=== PATIENT | female | born 1980 | race Two or more races ===

== ENCOUNTER 2022-02-21 12:49 | Inpatient (IN) | payer OTHER ==
[~2022-02-21] VITALS: Ht 154.9 cm; Wt 124.7 kg
[2022-02-21] MEDS ORDERED: PROBIOTIC1 EAC4 PO (13:13)
[2022-02-21] MEDS ORDERED: PEPCID AC20 MG PO (13:13)
--- NOTE | 2022-02-21 13:15 | NUR ---
SE RECIBE PTE ALERTA Y ORIENTADA X3,REFIERE TENER DIARREAS LE RECOMENDARON UN GASTRO TENIA KASSIE HOY FUE Y LE RECOMENDARON VENIR A LA MARINO DE ER,.LA PTE REFIERE SENTIRSE DEBIL ,LE HICIERON CT ABDOMINAL.
--- NOTE | 2022-02-21 14:40 | NUR ---
SE RECIBE PTE EVALUADA POR DR. LOCKHART, QUIEN HACE ORDEN MEDICA. SE ADMINISTRAN MEDICAMENTOS Y SE MARIE MUESTRAS DE LABORATORIO SIMEON ORDEN MEDICA Y BAJO MEDIDAS ASEPTICAS. PTE ESPERA EN AREA DE OBSERVACION POR RESULTADOS DE LABORATORIO PARA REEVALUACION MEDICA.
--- NOTE | 2022-02-21 15:42 | NUR ---
SE RECIBE PTE ALERTA Y ORIENTADA X3 EN TI CON BARANDAS ELEVADAS. PTE CANALIZADA AREA CLARE DE EDEMA Y DE ENROJECIMIENTO.PTE EN ESPERA DE RESULTADOS DE LAB. PARA RE EVALUCION MEDICA.
== END 2022-02-24 23:01 | disposition home or self-care (01) | DRG 392 ==
LOC: ER 12:49 → MEDI 21:17 → SURH 02-24 13:56
PROVIDERS: ADMIT Internal Medicine; ATTEND Internal Medicine
DX: K52.89 Other specified noninfective gastroenteritis and colitis (principal); E86.0 Dehydration; R63.0 Anorexia; R53.1 Weakness; Z68.23 Body mass index [BMI] 23.0-23.9, adult

== ENCOUNTER 2022-02-28 21:03 | Emergency (ER) | payer OTHER ==
[~2022-02-28] VITALS: Ht 154.9 cm; Wt 58.1 kg
[~2022-02-28 21:03] MED LIST: PEPCID AC20 MG PO; PROBIOTIC1 EAC4 PO
== END 2022-03-01 01:43 | disposition home or self-care (01) ==
LOC: ER 21:03
DX: K29.70 Gastritis, unspecified, without bleeding (principal); R10.84 Generalized abdominal pain; Z88.8 Allergy status to other drugs, medicaments and biological substances; Z91.013 Allergy to seafood

== ENCOUNTER 2022-03-01 03:38 | Emergency (ER) | payer OTHER ==
[~2022-03-01] VITALS: Ht 154.9 cm; Wt 58.1 kg
== END 2022-03-01 21:00 | disposition home or self-care (01) ==
LOC: ER 03:38
DX: K29.70 Gastritis, unspecified, without bleeding (principal); R10.9 Unspecified abdominal pain; Z91.041 Radiographic dye allergy status; Z91.013 Allergy to seafood

== ENCOUNTER 2022-03-03 08:59 | Inpatient (IN) | payer OTHER ==
[~2022-03-03] VITALS: Ht 154.9 cm; Wt 57.6 kg
[2022-03-03] MEDS ORDERED: PANTOPRAZOLE SO20 MG PO (09:09)
--- NOTE | 2022-03-03 09:12 | NUR ---
SE RECIBE PACIENTE ALERTA Y ORIENTADA X3. REFIERE DOLOR ABDOMINAL MITZY QUE EMPEZO EN EL AMANDA DE HOY Y ESCALOFRIOS. SE COLOCA EN TI CON BARANDAS ELEVADAS.
--- NOTE | 2022-03-03 10:04 | NUR ---
PACIENTE EVALUADA POR EL QUIEN ORDENA TRATAMIENTO MEDICO.SE ORIENTA PACIENTE SOBRE EL MISMO ESTA REFIERE ENTENDER. SE REALIZAN MUESTRAS BAJO MEDIDAS ASEPTICAS Y SE ADMINISTRAN MEDICAMENTOS SIMEON ORDEN. SE ORIENTA PACIENTE SOBRE CT PO.
--- NOTE | 2022-03-03 14:13 | NUR ---
SE ATIENDE PTE. EN SILLON EN EMERGENCIA EN ESPERA DE ESTUDIO CT CON MEDIO DE CONTRASTE. PTE. REFIERE TENER DIARREA EN 6 OCASIONES. SE LLEVA AL JULIANA Y AL SALIR AL PASILLO AMBULANDO ACOMPANADA DE HIJA Y RN. SHE. PIERDE FUERZA Y SE PONE EN TI SE MIDEN SIGNOS VITALES LOS CUALES ESTAN DENTRO DE LOS PARAMETROS NORMALES, SE LE HACE DEXTRO LA CUAL ARROJA UN RESULTADO DE 99. PTE. ESTA ALERTA, SE MANTUVO ACOM[place] EN TODO MOMENTO. PTE REFIERE SENTIRSE MEJOR. SE LE NIKO RONDAS CONSTANTES, CON BARANDAS ELEVADAS Y SE TAMIKO ACOMPANADA DE SAINI HIJA.
--- NOTE | 2022-03-03 21:55 | NUR ---
PACIENTE CONSULTADA CON MEDICINA INTERNA.
[2022-03-05] MEDS ORDERED: ESCITALOPRAM OXA5 MG (09:38)
[2022-03-05] MEDS ORDERED: SUCRALFATE1 GM (09:38)
[2022-03-05] MEDS ORDERED: LORAZEPAM0.5 MG (09:38)
== END 2022-03-10 23:00 | disposition home or self-care (01) | DRG 419 ==
LOC: ER 08:59 → MEDI 03-04 04:04 → SURG 03-07 15:52
PROVIDERS: ADMIT Internal Medicine; ATTEND Internal Medicine
PROC: 0FT44ZZ Resection of Gallbladder, Percutaneous Endoscopic Approach (ICD-10-PCS; principal; 2022-03-04)
PROC: CF141ZZ Planar Nuclear Medicine Imaging of Gallbladder using Technetium 99m (Tc-99m) (ICD-10-PCS; 2022-03-04)
DX: K81.1 Chronic cholecystitis (principal); E86.0 Dehydration; R10.13 Epigastric pain; Z20.822 Contact with and (suspected) exposure to COVID-19

== ENCOUNTER 2022-04-14 11:05 | Emergency (ER) | payer OTHER ==
[~2022-04-14] VITALS: Ht 154.9 cm; Wt 53.5 kg
[~2022-04-14 11:05] MED LIST changes: +ESCITALOPRAM OXA5 MG; +LORAZEPAM0.5 MG; +PANTOPRAZOLE SO20 MG PO; +SUCRALFATE1 GM
== END 2022-04-14 16:16 | disposition home or self-care (01) ==
LOC: ER 11:05
DX: K52.9 Noninfective gastroenteritis and colitis, unspecified (principal); E86.0 Dehydration; Z88.8 Allergy status to other drugs, medicaments and biological substances; Z91.013 Allergy to seafood

== ENCOUNTER 2022-07-22 11:04 | Emergency (ER) | payer OTHER ==
[~2022-07-22] VITALS: Ht 154.9 cm; Wt 55.8 kg
== END 2022-07-22 15:15 | disposition home or self-care (01) ==
LOC: ER 11:04
DX: U07.1 COVID-19 (principal)

== ENCOUNTER 2023-08-24 09:35 | Emergency (ER) | payer OTHER ==
[~2023-08-24] VITALS: Ht 154.9 cm; Wt 59.0 kg
[2023-08-24 12:51] LABS: PH,URINE 6.5 (5.0-8.0); URINE APPEARANCE Clear; URINE BILIRRUBIN Negative (NEGATIVE); URINE BLOOD Negative; URINE COLOR Yellow; URINE GLUCOSE Negative (NEGATIVE); URINE LEUKOCYTE Negative; URINE NITRATE Negative; URINE PROTEIN Negative (NEGATIVE); URINE UROBILINOGEN 0.2 E.U./dl
[2023-08-24 12:54] LABS: HEMATOCRIT 38.6 % (36.0-45.00); HEMOGLOBIN 13.5 g/dL (12.0-15.00); MEAN CELL VOLUME 90.5 fL (80.00-100.00); MEAN CORPUSCULAR HEMOGLOBIN 31.7 pg (27.00-32.0); MEAN CORPUSCULAR HGB CONC 35.1 g/dl (32.0-36.0); PLATELET COUNT 195 K/uL (150-450); RED BLOOD COUNT 4.27 M/uL (4.00-6.00); RED CELL DISTRIBUTION WIDTH 12.3 % (11.5-14.5)
[2023-08-24 12:55] LABS: URINE BACTERIA 214.1 uL (0.0-1933); URINE EPITHELIAL CELLS 28.4 uL (0.0-38.8); URINE RBC 8.6 uL (0.0-20.8)
[2023-08-24 13:08] LABS: URINE WBC 0.9 uL (0.0-23.2)
[2023-08-24 14:09] LABS: CALCIUM 8.8 mg/dL (8.5-10.1); CREATININE SERUM 0.59 mg/dL (0.55-1.02); GFR 112.32; POTASSIUM 3.86 mEq/L (3.5-5.1)
== END 2023-08-24 15:27 | disposition home or self-care (01) ==
LOC: ER 09:36
PROVIDERS: General Practice
DX: R53.81 Other malaise (principal); M54.50 Low back pain, unspecified; Z20.822 Contact with and (suspected) exposure to COVID-19; Z88.8 Allergy status to other drugs, medicaments and biological substances; Z91.013 Allergy to seafood; Z91.041 Radiographic dye allergy status

== ENCOUNTER 2023-08-25 22:26 | Emergency (ER) | payer OTHER ==
[~2023-08-25] VITALS: Ht 154.9 cm; Wt 58.5 kg
[2023-08-26 00:28] LABS: HEMOGLOBIN 13.3 g/dL (12.0-15.00); MEAN CELL VOLUME 89.8 fL (80.00-100.00); MEAN CORPUSCULAR HEMOGLOBIN 31.3 pg (27.00-32.0); MEAN CORPUSCULAR HGB CONC 34.8 g/dl (32.0-36.0); PLATELET COUNT 178 K/uL (150-450); RED BLOOD COUNT 4.24 M/uL (4.00-6.00); RED CELL DISTRIBUTION WIDTH 12.5 % (11.5-14.5)
[2023-08-26 01:00] LABS: ALBUMIN 3.6 gm/dL (3.4-5.0); BILIRUBIN TOTAL 0.34 mg/dL (0.3-1.2); CALCIUM 9.2 mg/dL (8.5-10.1); CREATININE SERUM 0.66 mg/dL (0.55-1.02); GFR 98.69; GLOBULINA 3.8 G/DL (2.4-3.5); POTASSIUM 3.22 mEq/L (3.5-5.1); TOTAL PROTEIN 7.4 gm/dL (6.4-8.2)
[2023-08-26 01:12] LABS: URINE APPEARANCE Clear; URINE BILIRRUBIN Negative (NEGATIVE); URINE BLOOD Negative; URINE COLOR Yellow; URINE GLUCOSE Negative (NEGATIVE); URINE LEUKOCYTE Negative; URINE NITRATE Negative; URINE PROTEIN Negative (NEGATIVE); URINE UROBILINOGEN 0.2 E.U./dl
[2023-08-26 01:15] LABS: URINE BACTERIA 747.1 uL (0.0-1933); URINE EPITHELIAL CELLS 29.9 uL (0.0-38.8); URINE WBC 6.9 uL (0.0-23.2)
[2023-08-26 01:27] LABS: URINE RBC 1.7 uL (0.0-20.8)
[2023-08-26] MEDS ORDERED: LEVALBUTER0.63 MG/3 IH (05:49)
[2023-08-26] MEDS ORDERED: ZYRTEC10 MG PO (05:49)
[2023-08-26] MEDS ORDERED: INTESTINEX680 M1 PO (05:49)
== END 2023-08-26 06:09 ==
LOC: ER 22:27
PROVIDERS: General Practice
DX: O98.511 Other viral diseases complicating pregnancy, first trimester (principal); U07.1 COVID-19; Z3A.01 Less than 8 weeks gestation of pregnancy

== ENCOUNTER 2024-02-04 18:35 | Emergency (ER) | payer OTHER ==
[~2024-02-04] VITALS: Ht 154.9 cm; Wt 56.7 kg
[~2024-02-04 18:35] MED LIST changes: +INTESTINEX680 M1 PO; +LEVALBUTER0.63 MG/3 IH; +ZYRTEC10 MG PO
[2024-02-04] MEDS ORDERED: ACETAMINOPHEN 500 MG GEL..CAP PO ONE (19:00)
[2024-02-04] MEDS ORDERED: KETOROLAC TROMETHAMINE 30 MG VIAL IM STA (19:19)
[2024-02-04] MEDS ORDERED: DEXAMETHASONE SODIUM PHOSPHATE 4 MG/ML VIAL IM STA (19:19)
[2024-02-04] MEDS ORDERED: GUAIFENESIN 200 MG/10 ML BLIST.PACK PO STA (19:20)
== END 2024-02-04 21:05 | disposition home or self-care (01) ==
LOC: ER 18:36
DX: J10.1 Influenza due to other identified influenza virus with other respiratory manifestations (principal); Z91.013 Allergy to seafood; Z91.041 Radiographic dye allergy status; Z20.822 Contact with and (suspected) exposure to COVID-19

== ENCOUNTER 2024-10-12 09:12 | Emergency (ER) | payer OTHER ==
[~2024-10-12] VITALS: Ht 152.4 cm; Wt 57.2 kg
[2024-10-12] MEDS ORDERED: FAMOtidine 10 MG/ML (4ML VIAL) IV PUSH ONE (10:15)
[2024-10-12 10:45] LABS: HEMATOCRIT 41.1 % (36.0-45.00); HEMOGLOBIN 14.2 g/dL (12.0-15.00); MEAN CELL VOLUME 92.3 fL (80.00-100.00); MEAN CORPUSCULAR HEMOGLOBIN 31.9 pg (27.00-32.0); MEAN CORPUSCULAR HGB CONC 34.5 g/dl (32.0-36.0); PLATELET COUNT 214 K/uL (150-450); RED BLOOD COUNT 4.45 M/uL (4.00-6.00)
[2024-10-12] MEDS ORDERED: ACETAMINOPHEN 500 MG GEL..CAP PO ONE (11:00)
[2024-10-12 11:16] LABS: CALCIUM 8.9 mg/dL (8.5-10.1); CREATININE SERUM 0.62 mg/dL (0.55-1.02); GFR 105.56; POTASSIUM 4.31 mEq/L (3.5-5.1)
[2024-10-12] MEDS ORDERED: 0.9 % SODIUM CHLORIDE 500 ML IV ONE (11:45)
[2024-10-12] MEDS ORDERED: ONDANSETRON HCL 2 MG/ML VIAL IV ONE (11:45)
[2024-10-12] MEDS ORDERED: MORPHINE SULFATE 2 MG/ML SYRINGE IV ONE (12:00)
[2024-10-12] MEDS ORDERED: LORazepam 0.5 MG TABLET PO ONE (12:15)
[2024-10-12] MEDS ORDERED: MAG HYDROX/ALUMINUM HYD/SIMETH 30 ML BLIST.PACK PO ONE (14:45)
[2024-10-12] MEDS ORDERED: OMEPRAZOLE-BIC1 EACH PO (15:14)
== END 2024-10-12 17:36 | disposition home or self-care (01) ==
LOC: ER 09:14
PROVIDERS: General Practice
DX: K21.9 Gastro-esophageal reflux disease without esophagitis (principal); I95.9 Hypotension, unspecified; F41.9 Anxiety disorder, unspecified; R07.89 Other chest pain; Z88.8 Allergy status to other drugs, medicaments and biological substances; Z91.013 Allergy to seafood

== ENCOUNTER 2024-10-21 08:09 | Emergency (ER) | payer OTHER ==
[~2024-10-21] VITALS: Ht 154.9 cm; Wt 55.3 kg
[~2024-10-21 08:09] MED LIST changes: +OMEPRAZOLE-BIC1 EACH PO
[2024-10-21] MEDS ORDERED: KETOROLAC TROMETHAMINE 30 MG VIAL IM STA (11:22)
[2024-10-21] MEDS ORDERED: CEFTRIAXONE SODIUM 1,000 MG VIAL IM STA (11:22)
[2024-10-21] MEDS ORDERED: LIDOCAINE HCL/MPF 1% 5ML VIAL IJ ONE (11:27)
[2024-10-21] MEDS ORDERED: CEFTRIAXONE SODIUM 1,000 MG VIAL ONE (11:28)
[2024-10-21] MEDS ORDERED: KETOROLAC TROMETHAMINE 30 MG VIAL ONE (11:32)
== END 2024-10-21 11:36 | disposition home or self-care (01) ==
LOC: ER 08:12
DX: J03.90 Acute tonsillitis, unspecified (principal); Z20.822 Contact with and (suspected) exposure to COVID-19; Z88.8 Allergy status to other drugs, medicaments and biological substances; Z91.013 Allergy to seafood

== ENCOUNTER 2025-04-27 03:50 | Emergency (ER) | payer OTHER ==
[~2025-04-27] VITALS: Ht 154.9 cm; Wt 56.7 kg
[2025-04-27] MEDS ORDERED: 0.9 % SODIUM CHLORIDE 1,000 ML IV ONE (04:30)
[2025-04-27 05:17] LABS: BASO % 0.5 % (0.1-1.2); EOS # 0.07 (0.04-0.54); EOS % 1.1 % (0.7-7.0); LYMPH # 1.84 (1.18-3.74); LYMPH % 29.2 % (19.3-53.1); MEAN PLATELET VOLUME 10.40 fl (9.4-12.4); MONO # 0.46 (0.24-0.82); MONO % 7.3 % (4.7-12.5); NEUT # 3.90 (1.56-6.13); NEUT % 61.7 % (34.0-71.1); RED CELL DISTRIBUTION WIDTH 10.9 % (11.6-14.4)
[2025-04-27 05:25] LABS: ALT/SGPT 18.0 U/L (12-78); AST/SGOT 14.0 U/L (15-37); BILIRUBIN TOTAL 0.4 mg/dL (0.3-1.2); BILIRUBIN,CONJUGATED 0.13 mg/dL (0.0-0.2); BUN CREA RATIO 20.0 (7.0-25.0); CREATININE SERUM 0.64 mg/dL (0.55-1.02); GFR 101.28; GLOBULINA 3.4 G/DL (2.4-3.5); GLUCOSE FASTING 93.0 mg/dL (65-100); INR 0.99; OSMOLALITY SERUM 287.0 MOSM/KG (275-295)
[2025-04-27 06:21] LABS: URINE APPEARANCE Clear; URINE BILIRRUBIN Negative (NEGATIVE); URINE BLOOD Negative; URINE COLOR Yellow; URINE GLUCOSE Negative (NEGATIVE); URINE KETONE Negative (NEGATIVE); URINE LEUKOCYTE Negative; URINE NITRATE Negative; URINE PROTEIN Negative (NEGATIVE); URINE UROBILINOGEN 0.2 E.U./dl
[2025-04-27 06:25] LABS: URINE BACTERIA 220.7 uL (0.0-1933); URINE EPITHELIAL CELLS 15.9 uL (0.0-38.8); URINE WBC 5.6 uL (0.0-23.2)
[2025-04-27 06:28] LABS: URINE CAST 0.00 uL (0.0-1.40); URINE RBC 1.9 uL (0.0-20.8)
[2025-04-27] MEDS ORDERED: LEVSIN/SL0.125 MG SL (07:11)
== END 2025-04-27 07:23 ==
LOC: ER 03:50
PROVIDERS: General Practice
DX: R10.84 Generalized abdominal pain (principal); Z88.8 Allergy status to other drugs, medicaments and biological substances; Z91.013 Allergy to seafood

== ENCOUNTER 2025-06-13 10:33 | Emergency (ER) | payer OTHER ==
[~2025-06-13] VITALS: Ht 154.9 cm; Wt 54.4 kg
[~2025-06-13 10:33] MED LIST changes: +LEVSIN/SL0.125 MG SL
[2025-06-13] MEDS ORDERED: 0.9 % SODIUM CHLORIDE 1,000 ML IV SCH (13:00)
[2025-06-13] MEDS ORDERED: KETOROLAC TROMETHAMINE 30 MG VIAL IV ONE (13:00)
[2025-06-13] MEDS ORDERED: FAMOtidine 10 MG/ML (4ML VIAL) IV PUSH ONE (13:00)
[2025-06-13] MEDS ORDERED: ONDANSETRON HCL 2 MG/ML VIAL IV ONE (13:00)
[2025-06-13] MEDS ORDERED: ONDANSETRON HCL 2 MG/ML VIAL ONE (13:09)
[2025-06-13] MEDS ORDERED: FAMOTIDINE/PF 20 MG/2 ML VIAL ONE (13:09)
[2025-06-13] MEDS ORDERED: KETOROLAC TROMETHAMINE 30 MG VIAL ONE (13:09)
[2025-06-13 13:48] LABS: BASO % 0.5 % (0.1-1.2); EOS # 0.11 (0.04-0.54); EOS % 1.4 % (0.7-7.0); LYMPH # 2.50 (1.18-3.74); LYMPH % 32.9 % (19.3-53.1); MEAN PLATELET VOLUME 10.20 fl (9.4-12.4); MONO # 0.43 (0.24-0.82); MONO % 5.7 % (4.7-12.5); NEUT # 4.50 (1.56-6.13); NEUT % 59.4 % (34.0-71.1); RED CELL DISTRIBUTION WIDTH 10.9 % (11.6-14.4)
[2025-06-13 13:55] LABS: ERYTHROCYTE SEDIMENTATION RATE 14 mm/hr (0-20)
[2025-06-13 14:33] LABS: ALT/SGPT 22.0 U/L (12-78); AST/SGOT 15.0 U/L (15-37); BILIRUBIN TOTAL 0.62 mg/dL (0.3-1.2); BUN CREA RATIO 18.0 (7.0-25.0); CREATININE SERUM 0.79 mg/dL (0.55-1.02); GFR 79.43; GLOBULINA 3.9 G/DL (2.4-3.5); GLUCOSE FASTING 90.0 mg/dL (65-100); OSMOLALITY SERUM 281.0 MOSM/KG (275-295)
[2025-06-13] MEDS ORDERED: ZOFRAN8 MG PO (19:20)
[2025-06-13] MEDS ORDERED: PEPCID AC20 MG PO (19:20)
[2025-06-13] MEDS ORDERED: INTESTINEX680 M1 PO (20:07)
== END 2025-06-13 20:21 | disposition home or self-care (01) ==
LOC: ER 10:33
PROVIDERS: General Practice
DX: K52.89 Other specified noninfective gastroenteritis and colitis (principal); Z88.8 Allergy status to other drugs, medicaments and biological substances; Z91.013 Allergy to seafood
CPT/HCPCS: 36415; 74176; 96365; 96366; 99283; J1885; J2405; J3490; J7030